=== PATIENT | female | born 1970 | race Two or more races ===

== ENCOUNTER 2017-08-06 10:30 | Inpatient (IN) | payer OTHER ==
[~2017-08-06] VITALS: Ht 175.3 cm; Wt 86.2 kg
[2017-08-25] MEDS ORDERED: FLURAZEPAM HCL30 MG PO (09:13)
[2017-08-25] MEDS ORDERED: CLONAZEPAM0.5 MG PO (09:14)
[2017-08-25] MEDS ORDERED: ZIPRASIDONE HCL40 MG (09:14)
[2017-08-25] MEDS ORDERED: BUPROPION XL300 MG PO (09:15)
[2017-08-25] MEDS ORDERED: NEURONTIN800 MG PO (09:17)
[2017-08-25] MEDS ORDERED: ULTRAM50 MG PO (09:18)
[2017-08-25] MEDS ORDERED: NAPROXEN500 MG PO (09:19)
[2017-08-25] MEDS ORDERED: FLEXERIL (09:19)
== END 2017-09-04 19:32 | DRG 470 ==
LOC: O/R 09-02 05:51 → SURG 09-02 07:00 → SURH 09-02 13:30
PROVIDERS: Orthopaedic Surgery
PROC: 0SRD0J9 Replacement of Left Knee Joint with Synthetic Substitute, Cemented, Open Approach (ICD-10-PCS; principal; 2017-09-02 07:00)
PROC: 30233N1 Transfusion of Nonautologous Red Blood Cells into Peripheral Vein, Percutaneous Approach (ICD-10-PCS; 2017-09-03)
DX: M17.12 Unilateral primary osteoarthritis, left knee (principal); D62 Acute posthemorrhagic anemia; M79.7 Fibromyalgia

== ENCOUNTER 2020-05-23 10:15 | Inpatient (IN) | payer OTHER ==
[~2020-05-23] VITALS: Ht 175.3 cm; Wt 83.9 kg
[~2020-05-23 10:15] MED LIST: BUPROPION XL300 MG PO; CLONAZEPAM0.5 MG PO; FLEXERIL; FLURAZEPAM HCL30 MG PO; NAPROXEN500 MG PO; NEURONTIN800 MG PO; ULTRAM50 MG PO; ZIPRASIDONE HCL40 MG
[2020-06-07] MEDS ORDERED: FEXMID7.5 MG (08:03)
[2020-06-07] MEDS ORDERED: BETAMETHASONE D15 G3 (08:04)
[2020-06-07] MEDS ORDERED: EPINEPHRIN0.3 MG/0.3 (08:04)
[2020-06-07] MEDS ORDERED: MIRTAZAPINE30 MG (08:04)
[2020-06-07] MEDS ORDERED: ATARAX25 MG (08:04)
[2020-06-07] MEDS ORDERED: TRIAMCINOLONE A15 G3 (08:04)
[2020-06-07] MEDS ORDERED: SONATA10 MG (08:05)
[2020-06-07] MEDS ORDERED: DOXEPIN HCL100 MG (08:05)
[2020-06-07] MEDS ORDERED: QUETIAPINE FUM200 MG (08:05)
[2020-06-07] MEDS ORDERED: DIVALPROEX SOD500 MG (08:05)
[2020-06-07] MEDS ORDERED: VENLAFAXINE HC150 MG (08:06)
[2020-06-07] MEDS ORDERED: VENLAFAXINE HCL75 M1 (08:06)
[2020-06-07] MEDS ORDERED: CYCLOBENZAPRINE10 MG (08:07)
[2020-06-07] MEDS ORDERED: CLONAZEPAM1 MG (08:07)
== END 2020-06-08 15:02 | DRG 470 ==
LOC: SURH 05-30 07:00 → O/R 06-06 06:20 → SURH 06-06 06:20
PROVIDERS: ADMIT Orthopaedic Surgery; ATTEND Orthopaedic Surgery
PROC: 0SRC0J9 Replacement of Right Knee Joint with Synthetic Substitute, Cemented, Open Approach (ICD-10-PCS; principal; 2020-06-06 09:30)
DX: M17.11 Unilateral primary osteoarthritis, right knee (principal); D62 Acute posthemorrhagic anemia

== ENCOUNTER 2023-06-23 07:28 | Outpatient (CLI) | payer OTHER ==
[~2023-06-23 07:28] MED LIST changes: +ATARAX25 MG; +BETAMETHASONE D15 G3; +CLONAZEPAM1 MG; +CYCLOBENZAPRINE10 MG; +DIVALPROEX SOD500 MG; +DOXEPIN HCL100 MG; +EPINEPHRIN0.3 MG/0.3; +FEXMID7.5 MG; +MIRTAZAPINE30 MG; +QUETIAPINE FUM200 MG; +SONATA10 MG; +TRIAMCINOLONE A15 G3; +VENLAFAXINE HC150 MG; +VENLAFAXINE HCL75 M1
== END 2023-06-23 07:32 | disposition home or self-care (01) ==
LOC: RX STUDY 07:28
DX: K56.50 Intestinal adhesions [bands], unspecified as to partial versus complete obstruction (principal)